=== PATIENT | female | born 1965 | race Caucasian/White ===

== ENCOUNTER 2019-02-14 16:10 | Emergency (ER) | payer OTHER ==
[2019-02-14] MEDS: IBUPROFEN 800 MG TAB PO (16:37)
[2019-02-14] MEDS: SODIUM CHLORIDE 0.9% 1L IRRIG IRR (18:51)
[2019-02-14] MEDS: LIDOCAINE 2%/EPI MPF (SDV) 20 ML VIAL INJ (18:51)
== END 2019-02-14 19:25 | disposition home or self-care (01) ==
LOC: FTE 19:25
DX: S01.01XA Laceration without foreign body of scalp, initial encounter (principal); I10 Essential (primary) hypertension; Y04.8XXA Assault by other bodily force, initial encounter; Y92.9 Unspecified place or not applicable
CPT/HCPCS: 12001; 70450; 73130-RT; 99284-25